=== PATIENT | male | born 1975 | race Caucasian/White ===

== ENCOUNTER 2017-08-15 15:24 | Inpatient (IN) | payer MEDICARE, MEDICAID ==
[2017-08-15] MEDS: NICOTINE 21MG/24HR 1 EA TRANSDERMAL TD (09:00)
[2017-08-15 16:10] LABS: HEMATOCRIT 41.6 % (42.0-52.0); HEMOGLOBIN 14.1 g/dl (13.5-17.5); MEAN CORPUSCULAR HEMOGLOBIN 31.2 pg (27.0-33.0); MEAN CORPUSCULAR HGB CONC 33.9 g/dl (32.0-36.5); PLATELET COUNT, AUTOMATED 221 10^3/uL (150-450); RED BLOOD COUNT 4.52 10^6/uL (4.30-6.10); RED CELL DISTRIBUTION WIDTH 12.3 % (11.5-14.5); WHITE BLOOD COUNT 6.1 10^3/uL (4.0-10.0)
[2017-08-15 16:34] LABS: AMPHETAMINES LEVEL URINE NEGATIVE (NEGATIVE); BARBITURATES URINE NEGATIVE (NEGATIVE); BENZODIAZEPINES URINE NEGATIVE (NEGATIVE); CANNABINOIDS URINE POSITIVE (NEGATIVE); COCAINE METABOLITE URINE POSITIVE (NEGATIVE); METHADONE URINE NEGATIVE (NEGATIVE); OPIATES URINE NEGATIVE (NEGATIVE); PHENCYCLIDINE URINE NEGATIVE (NEGATIVE)
[2017-08-15 16:42] LABS: ACETAMINOPHEN LEVEL < 2.0 UG/ML (10.0-30.0); ALBUMIN 3.8 GM/DL (3.2-5.2); ALBUMIN/GLOBULIN RATIO 1.31 (1.00-1.93); ALKALINE PHOSPHATASE 69 U/L (45-117); ALT/SGPT 60 U/L (12-78); ANION GAP 6 MEQ/L (8-16); AST/SGOT 49 U/L (7-37); BILIRUBIN,DIRECT 0.1 MG/DL (0.0-0.2); BILIRUBIN,TOTAL 0.3 MG/DL (0.2-1.0); BLOOD UREA NITROGEN 18 MG/DL (7-18); CALCIUM LEVEL 8.7 MG/DL (8.5-10.1); CARBON DIOXIDE LEVEL 27 MEQ/L (21-32); CHLORIDE LEVEL 110 MEQ/L (98-107); CPK CREATINE PHOSPHOKINASE 701 U/L (39-308); CREATININE FOR GFR 1.09 MG/DL (0.70-1.30); GLOMERULAR FILTRATION RATE > 60.0 (>60); GLUCOSE, FASTING 115 MG/DL (70-100); POTASSIUM SERUM 3.9 MEQ/L (3.5-5.1); SALICYLATE LEVEL < 1.7 MG/DL (5.0-30.0); SODIUM LEVEL 143 MEQ/L (136-145); THYROID STIMULATING HORMONE 0.764 uIU/ML (0.358-3.740); TOTAL PROTEIN 6.7 GM/DL (6.4-8.2)
[2017-08-15 16:46] LABS: ETHYL ALCOHOL (ETHANOL) < 0.003 % (0.000-0.010)
[2017-08-15] MEDS: NS 1,000 ML IV (17:05)
[2017-08-15] MEDS ORDERED: MOM 30ML SUSPENSION UDC PO (18:45)
[2017-08-15] MEDS ORDERED: MAALOX 30 ML SUSP *UDC PO (18:45)
[2017-08-15] MEDS ORDERED: LORazepam 2 MG TAB PO (18:45)
[2017-08-15] MEDS: THIAMINE 100 MG TAB PO (19:31)
[2017-08-15] MEDS: OLANZapine ORAL DISINTEGRATING TAB 5MG PO (21:01)
[2017-08-16] MEDS: ACETAMINOPHEN TAB 650MG DOSE (2X325MG) PO ×2 (06:14→18:20)
[2017-08-16] MEDS: IBUPROFEN 400 MG TAB PO (08:45)
[2017-08-16] MEDS: FOLIC ACID 1 MG TAB PO (08:46)
[2017-08-16] MEDS: OLANZapine ORAL DISINTEGRATING TAB 5MG PO ×3 (08:46→18:20)
[2017-08-16] MEDS: MULTIVITAMINS/MINERALS THERAP 1 TAB PO (08:46)
[2017-08-16] MEDS: THIAMINE 100 MG TAB PO ×2 (08:46→20:22)
[2017-08-16] MEDS: amLODIPine 5 MG TAB PO (08:46)
[2017-08-16] MEDS: CitaloPRAM (CeleXA) 20 MG TAB PO (08:46)
[2017-08-16] MEDS: NICOTINE 21MG/24HR 1 EA TRANSDERMAL TD (08:47)
[2017-08-16] MEDS: LIDOCAINE 5% (LIDODERM) PATCH TD (14:11)
[2017-08-16] MEDS: QUEtiapine FUMARATE 200 MG TAB PO (20:23)
[2017-08-16] MEDS: **NOTE PATIENT COMMENT** MISC XX (21:00)
[2017-08-16] MEDS: traZODone 50 MG TAB PO (21:09)
[2017-08-17] MEDS: OLANZapine ORAL DISINTEGRATING TAB 5MG PO ×2 (06:14→14:58)
[2017-08-17] MEDS: IBUPROFEN 400 MG TAB PO (06:15)
[2017-08-17 07:54] LABS: CPK CREATINE PHOSPHOKINASE 243 U/L (39-308)
[2017-08-17] MEDS: THIAMINE 100 MG TAB PO ×2 (08:54→20:19)
[2017-08-17] MEDS: MULTIVITAMINS/MINERALS THERAP 1 TAB PO (08:54)
[2017-08-17] MEDS: amLODIPine 5 MG TAB PO (08:55)
[2017-08-17] MEDS: QUEtiapine FUMARATE 200 MG TAB PO ×2 (08:55→20:19)
[2017-08-17] MEDS: ACETAMINOPHEN TAB 650MG DOSE (2X325MG) PO (08:55)
[2017-08-17] MEDS: FOLIC ACID 1 MG TAB PO (08:55)
[2017-08-17] MEDS: LIDOCAINE 5% (LIDODERM) PATCH TD ×2 (08:56→18:14)
[2017-08-17] MEDS: NICOTINE 21MG/24HR 1 EA TRANSDERMAL TD (08:57)
[2017-08-17] MEDS: BACLOFEN 10 MG TAB PO ×2 (12:56→22:07)
[2017-08-17] MEDS: IBUPROFEN 800 MG TAB PO (17:10)
[2017-08-17] MEDS: **NOTE PATIENT COMMENT** MISC XX (20:20)
[2017-08-17] MEDS: traZODone 50 MG TAB PO (22:07)
[2017-08-18] MEDS: OLANZapine ORAL DISINTEGRATING TAB 5MG PO ×2 (06:08→14:53)
[2017-08-18] MEDS: IBUPROFEN 800 MG TAB PO ×2 (06:10→17:56)
[2017-08-18] MEDS: QUEtiapine FUMARATE 200 MG TAB PO (08:06)
[2017-08-18] MEDS: MULTIVITAMINS/MINERALS THERAP 1 TAB PO (08:06)
[2017-08-18] MEDS: LIDOCAINE 5% (LIDODERM) PATCH TD (08:06)
[2017-08-18] MEDS: FOLIC ACID 1 MG TAB PO (08:06)
[2017-08-18] MEDS: BACLOFEN 10 MG TAB PO ×2 (08:06→17:56)
[2017-08-18] MEDS: amLODIPine 5 MG TAB PO (08:06)
[2017-08-18] MEDS: THIAMINE 100 MG TAB PO (08:06)
[2017-08-18] MEDS: NICOTINE 21MG/24HR 1 EA TRANSDERMAL TD (08:08)
[2017-08-18] MEDS: ACETAMINOPHEN TAB 650MG DOSE (2X325MG) PO ×2 (11:30→20:59)
[2017-08-18] MEDS: QUEtiapine FUMARATE 100 MG TAB PO (20:04)
[2017-08-18] MEDS: traZODone 50 MG TAB PO (20:04)
[2017-08-18] MEDS: PILL CRUSHER/CUTTER 1 EACH XX (20:04)
[2017-08-18] MEDS: **NOTE PATIENT COMMENT** MISC XX (20:05)
[2017-08-19] MEDS: OLANZapine ORAL DISINTEGRATING TAB 5MG PO ×3 (04:16→20:31)
[2017-08-19] MEDS: LIDOCAINE 5% (LIDODERM) PATCH TD (08:00)
[2017-08-19] MEDS: IBUPROFEN 800 MG TAB PO (08:03)
[2017-08-19] MEDS: BACLOFEN 10 MG TAB PO ×2 (08:03→17:14)
[2017-08-19] MEDS: FOLIC ACID 1 MG TAB PO (08:03)
[2017-08-19] MEDS: MULTIVITAMINS/MINERALS THERAP 1 TAB PO (08:03)
[2017-08-19] MEDS: QUEtiapine FUMARATE 100 MG TAB PO ×2 (08:03→20:03)
[2017-08-19] MEDS: NICOTINE 21MG/24HR 1 EA TRANSDERMAL TD (08:04)
[2017-08-19] MEDS: amLODIPine 5 MG TAB PO (08:04)
[2017-08-19] MEDS: ACETAMINOPHEN TAB 650MG DOSE (2X325MG) PO (12:26)
[2017-08-19] MEDS: traZODone 50 MG TAB PO (20:03)
[2017-08-19] MEDS: **NOTE PATIENT COMMENT** MISC XX (20:03)
[2017-08-19] MEDS: PILL CRUSHER/CUTTER 1 EACH XX (20:03)
[2017-08-20] MEDS: IBUPROFEN 800 MG TAB PO (05:01)
[2017-08-20] MEDS: MULTIVITAMINS/MINERALS THERAP 1 TAB PO (08:20)
[2017-08-20] MEDS: FOLIC ACID 1 MG TAB PO (08:20)
[2017-08-20] MEDS: QUEtiapine FUMARATE 50 MG TAB PO (08:20)
[2017-08-20] MEDS: OLANZapine ORAL DISINTEGRATING TAB 5MG PO (08:20)
[2017-08-20] MEDS: amLODIPine 5 MG TAB PO (08:20)
[2017-08-20] MEDS: BACLOFEN 10 MG TAB PO (08:21)
[2017-08-20] MEDS: LIDOCAINE 5% (LIDODERM) PATCH TD (08:21)
[2017-08-20] MEDS: NICOTINE 21MG/24HR 1 EA TRANSDERMAL TD (09:00)
== END 2017-08-20 14:40 | disposition home or self-care (01) | DRG 885 ==
LOC: M ED 15:24 → M ED INP 18:41 → M PSY 21:20
DX: F31.60 Bipolar disorder, current episode mixed, unspecified (principal); F41.1 Generalized anxiety disorder; F41.0 Panic disorder [episodic paroxysmal anxiety]; Z91.19 Patient's noncompliance with other medical treatment and regimen; F14.90 Cocaine use, unspecified, uncomplicated; F10.10 Alcohol abuse, uncomplicated; F12.90 Cannabis use, unspecified, uncomplicated; Z79.899 Other long term (current) drug therapy; I10 Essential (primary) hypertension; M54.5 Low back pain; Z87.891 Personal history of nicotine dependence

== ENCOUNTER → 2017-10-20 | Outpatient (REF) | payer MEDICARE, MEDICAID ==
[2017-10-20 11:36] LABS: BASO # 0.1 10^3/uL (0.0-0.2); BASO % 0.8 % (0.0-1.0); EOS # 0.3 10^3/uL (0.0-0.50); EOS % 3.9 % (0.0-3.0); HEMATOCRIT 48.5 % (42.0-52.0); IMMATURE GRANULOCYTE # 0.1 10^3/uL (0-0); IMMATURE GRANULOCYTE % 0.6 % (0-3.0); LYMPH # 1.9 10^3/uL (1.5-4.5); LYMPH % 24.3 % (24.0-44.0); MEAN CORPUSCULAR HEMOGLOBIN 30.9 pg (27.0-33.0); MEAN CORPUSCULAR VOLUME 93.6 fl (80.0-96.0); MONO # 0.5 10^3/uL (0.0-0.8); MONO % 6.3 % (0.0-5.0); NEUTROPHILS # 5.1 10^3/uL (1.8-7.7); NEUTROPHILS % 64.1 % (36.0-66.0); PLATELET COUNT, AUTOMATED 192 10^3/uL (150-450); RED BLOOD COUNT 5.18 10^6/uL (4.30-6.10); RED CELL DISTRIBUTION WIDTH 12.5 % (11.5-14.5); WHITE BLOOD COUNT 7.9 10^3/uL (4.0-10.0)
[2017-10-20 12:15] LABS: ALBUMIN 3.8 GM/DL (3.2-5.2); ALBUMIN/GLOBULIN RATIO 1.23 (1.00-1.93); ALKALINE PHOSPHATASE 69 U/L (45-117); ALT/SGPT 30 U/L (12-78); ANION GAP 7 MEQ/L (8-16); AST/SGOT 19 U/L (7-37); BILIRUBIN,TOTAL 0.4 MG/DL (0.2-1.0); BLOOD UREA NITROGEN 15 MG/DL (7-18); CALCIUM LEVEL 9.4 MG/DL (8.5-10.1); CARBON DIOXIDE LEVEL 30 MEQ/L (21-32); CHLORIDE LEVEL 108 MEQ/L (98-107); CHOLESTEROL LEVEL 162 MG/DL (<200); CHOLESTEROL RISK RATIO 3.115 (<5); CREATININE FOR GFR 1.17 MG/DL (0.70-1.30); GLOMERULAR FILTRATION RATE > 60.0 (>60); GLUCOSE, FASTING 83 MG/DL (70-100); HDL CHOLESTEROL 52 MG/DL (>40); LDL CHOLESTEROL 93.4 MG/DL (<100); NON-HDL-C 110 MG/DL; POTASSIUM SERUM 4.8 MEQ/L (3.5-5.1); SODIUM LEVEL 145 MEQ/L (136-145); TOTAL PROTEIN 6.9 GM/DL (6.4-8.2); TRIGLYCERIDES LEVEL 83 MG/DL (<150)
[2017-10-20 12:27] LABS: ERYTHROCYTE SEDIMENTATION RATE 2 mm/hr (0-15)
== END ==
LOC: M LABDRAW1 11:20
DX: R07.2 Precordial pain (principal); I49.3 Ventricular premature depolarization; R94.31 Abnormal electrocardiogram [ECG] [EKG]; I10 Essential (primary) hypertension
CPT/HCPCS: 83735

== ENCOUNTER → 2017-11-09 | Outpatient (CLI) | payer MEDICARE, MEDICAID | LOC: M RAD 09:18 | DX: J98.4 Other disorders of lung (principal); F17.210 Nicotine dependence, cigarettes, uncomplicated | CPT/HCPCS: 71250 ==

== ENCOUNTER 2018-01-10 07:39 | Emergency (ER) | payer MEDICARE, MEDICAID ==
[2018-01-10] MEDS: PERCOCET 5MG/325MG TAB PO (08:02)
[2018-01-10] MEDS: diazePAM 5 MG TAB PO (08:03)
[2018-01-10] MEDS: KETOROLAC 60 MG/2 ML VIAL (J1885) IM (08:03)
[2018-01-10] MEDS: LIDOCAINE 5% (LIDODERM) PATCH TD (08:08)
[2018-01-10] MEDS ORDERED: **NOTE PATIENT COMMENT** MISC XX (21:00)
== END 2018-01-10 08:51 | disposition home or self-care (01) ==
LOC: M ED 07:39
DX: M54.14 Radiculopathy, thoracic region (principal); I10 Essential (primary) hypertension; G89.29 Other chronic pain; M54.5 Low back pain
CPT/HCPCS: J1885

== ENCOUNTER 2018-03-20 18:33 | Inpatient (IN) | payer MEDICARE, MEDICAID ==
[2018-03-20 19:04] LABS: HEMOGLOBIN 16.7 g/dl (13.5-17.5); MEAN CORPUSCULAR HEMOGLOBIN 30.7 pg (27.0-33.0); MEAN CORPUSCULAR HGB CONC 34.8 g/dl (32.0-36.5); MEAN CORPUSCULAR VOLUME 88.2 fl (80.0-96.0); PLATELET COUNT, AUTOMATED 196 10^3/uL (150-450); RED BLOOD COUNT 5.44 10^6/uL (4.30-6.10); RED CELL DISTRIBUTION WIDTH 11.9 % (11.5-14.5); WHITE BLOOD COUNT 7.1 10^3/uL (4.0-10.0)
[2018-03-20 19:37] LABS: AMPHETAMINES LEVEL URINE NEGATIVE (NEGATIVE); BARBITURATES URINE NEGATIVE (NEGATIVE); BENZODIAZEPINES URINE NEGATIVE (NEGATIVE); CANNABINOIDS URINE NEGATIVE (NEGATIVE); COCAINE METABOLITE URINE NEGATIVE (NEGATIVE); METHADONE URINE NEGATIVE (NEGATIVE); OPIATES URINE NEGATIVE (NEGATIVE); PHENCYCLIDINE URINE NEGATIVE (NEGATIVE)
[2018-03-20 19:47] LABS: ACETAMINOPHEN LEVEL < 2.0 UG/ML (10.0-30.0); ALBUMIN 4.1 GM/DL (3.2-5.2); ALBUMIN/GLOBULIN RATIO 1.28 (1.00-1.93); ALKALINE PHOSPHATASE 77 U/L (45-117); ALT/SGPT 29 U/L (12-78); ANION GAP 7 MEQ/L (8-16); AST/SGOT 21 U/L (7-37); BILIRUBIN,DIRECT 0.1 MG/DL (0.0-0.2); BILIRUBIN,TOTAL 0.4 MG/DL (0.2-1.0); BLOOD UREA NITROGEN 14 MG/DL (7-18); CALCIUM LEVEL 8.6 MG/DL (8.5-10.1); CARBON DIOXIDE LEVEL 28 MEQ/L (21-32); CHLORIDE LEVEL 108 MEQ/L (98-107); CREATININE FOR GFR 1.12 MG/DL (0.70-1.30); ETHYL ALCOHOL (ETHANOL) 0.085 % (0.000-0.010); GLOMERULAR FILTRATION RATE > 60.0 (>60); GLUCOSE, FASTING 89 MG/DL (70-100); POTASSIUM SERUM 3.9 MEQ/L (3.5-5.1); SALICYLATE LEVEL 1.9 MG/DL (5.0-30.0); SODIUM LEVEL 143 MEQ/L (136-145); TOTAL PROTEIN 7.3 GM/DL (6.4-8.2)
[2018-03-20] MEDS: OLANZapine 5 MG TAB PO (20:16)
[2018-03-20] MEDS ORDERED: MAALOX 30 ML SUSP *UDC PO (20:45)
[2018-03-20] MEDS ORDERED: MOM 30ML SUSPENSION UDC PO (20:45)
[2018-03-20] MEDS: traZODone 50 MG TAB PO (23:26)
[2018-03-21] MEDS: THIAMINE 100 MG TAB PO ×2 (03:49→20:10)
[2018-03-21] MEDS ORDERED: LORazepam 2 MG TAB PO (04:00)
[2018-03-21] MEDS: FOLIC ACID 1 MG TAB PO (08:12)
[2018-03-21] MEDS: MULTIVITAMINS/MINERALS THERAP 1 TAB PO (08:12)
[2018-03-21] MEDS: ACETAMINOPHEN TAB 650MG DOSE (2X325MG) PO (09:05)
[2018-03-21] MEDS: PREGABALIN 75 MG CAP(LYRICA) PO ×2 (10:25→20:09)
[2018-03-21] MEDS: OLANZapine 10 MG TAB PO ×2 (10:25→20:09)
[2018-03-21] MEDS: LIDOCAINE 5% (LIDODERM) PATCH TD (10:26)
[2018-03-21] MEDS: VERAPAMIL 120 MG SR TAB PO (11:34)
[2018-03-21] MEDS: NICOTINE POLACRILEX 2 MG GUM PO ×3 (11:35→21:40)
[2018-03-21] MEDS: IBUPROFEN 800 MG TAB PO (14:25)
[2018-03-21] MEDS: traZODone 50 MG TAB PO (20:09)
[2018-03-21] MEDS: **NOTE PATIENT COMMENT** MISC XX (21:00)
[2018-03-22] MEDS: NICOTINE POLACRILEX 2 MG GUM PO ×3 (08:29→21:55)
[2018-03-22] MEDS: FOLIC ACID 1 MG TAB PO (08:29)
[2018-03-22] MEDS: PREGABALIN 75 MG CAP(LYRICA) PO ×2 (08:29→20:27)
[2018-03-22] MEDS: THIAMINE 100 MG TAB PO ×2 (08:29→20:27)
[2018-03-22] MEDS: MULTIVITAMINS/MINERALS THERAP 1 TAB PO (08:30)
[2018-03-22] MEDS: OLANZapine 10 MG TAB PO ×2 (08:30→20:27)
[2018-03-22] MEDS: LIDOCAINE 5% (LIDODERM) PATCH TD (08:30)
[2018-03-22] MEDS: VERAPAMIL 120 MG SR TAB PO (08:30)
[2018-03-22] MEDS: IBUPROFEN 800 MG TAB PO ×2 (12:19→21:57)
[2018-03-22] MEDS: ACETAMINOPHEN TAB 650MG DOSE (2X325MG) PO (18:11)
[2018-03-22] MEDS: traZODone 50 MG TAB PO (20:27)
[2018-03-22] MEDS: **NOTE PATIENT COMMENT** MISC XX (20:28)
[2018-03-23] MEDS: PREGABALIN 75 MG CAP(LYRICA) PO ×2 (08:56→20:25)
[2018-03-23] MEDS: LIDOCAINE 5% (LIDODERM) PATCH TD (08:56)
[2018-03-23] MEDS: OLANZapine 10 MG TAB PO ×2 (08:57→20:25)
[2018-03-23] MEDS: THIAMINE 100 MG TAB PO ×2 (08:57→20:25)
[2018-03-23] MEDS: VERAPAMIL 120 MG SR TAB PO (08:57)
[2018-03-23] MEDS: MULTIVITAMINS/MINERALS THERAP 1 TAB PO (08:57)
[2018-03-23] MEDS: FOLIC ACID 1 MG TAB PO (08:57)
[2018-03-23] MEDS: NICOTINE POLACRILEX 2 MG GUM PO ×3 (08:58→20:26)
[2018-03-23] MEDS: IBUPROFEN 800 MG TAB PO ×2 (12:20→22:27)
[2018-03-23] MEDS: traZODone 50 MG TAB PO (20:25)
[2018-03-23] MEDS: **NOTE PATIENT COMMENT** MISC XX (20:27)
[2018-03-24] MEDS: MULTIVITAMINS/MINERALS THERAP 1 TAB PO (08:55)
[2018-03-24] MEDS: PREGABALIN 75 MG CAP(LYRICA) PO ×2 (08:55→20:31)
[2018-03-24] MEDS: FOLIC ACID 1 MG TAB PO (08:55)
[2018-03-24] MEDS: NICOTINE POLACRILEX 2 MG GUM PO ×3 (08:55→20:31)
[2018-03-24] MEDS: OLANZapine 10 MG TAB PO ×2 (08:55→20:31)
[2018-03-24] MEDS: VERAPAMIL 120 MG SR TAB PO (08:56)
[2018-03-24] MEDS: LIDOCAINE 5% (LIDODERM) PATCH TD (08:57)
[2018-03-24] MEDS: IBUPROFEN 800 MG TAB PO (13:27)
[2018-03-24] MEDS: **NOTE PATIENT COMMENT** MISC XX (20:29)
[2018-03-24] MEDS: traZODone 50 MG TAB PO ×2 (20:31→23:35)
[2018-03-25] MEDS: IBUPROFEN 800 MG TAB PO (08:20)
[2018-03-25] MEDS: MULTIVITAMINS/MINERALS THERAP 1 TAB PO (08:20)
[2018-03-25] MEDS: FOLIC ACID 1 MG TAB PO (08:20)
[2018-03-25] MEDS: VERAPAMIL 120 MG SR TAB PO (08:20)
[2018-03-25] MEDS: LIDOCAINE 5% (LIDODERM) PATCH TD (08:20)
[2018-03-25] MEDS: OLANZapine 10 MG TAB PO (08:20)
[2018-03-25] MEDS: PREGABALIN 75 MG CAP(LYRICA) PO (08:20)
[2018-03-25] MEDS: NICOTINE POLACRILEX 2 MG GUM PO (08:23)
== END 2018-03-25 11:15 | disposition home or self-care (01) | DRG 885 ==
LOC: M ED 18:33 → M ED INP 20:39 → M PSY 21:55
DX: F31.9 Bipolar disorder, unspecified (principal); R45.851 Suicidal ideations; M54.5 Low back pain; F12.90 Cannabis use, unspecified, uncomplicated; F10.10 Alcohol abuse, uncomplicated; F17.210 Nicotine dependence, cigarettes, uncomplicated; F17.220 Nicotine dependence, chewing tobacco, uncomplicated; I10 Essential (primary) hypertension

== ENCOUNTER 2018-08-09 11:02 | Emergency (ER) | payer MEDICARE, MEDICAID ==
[~2018-08-09] VITALS: Ht 195.6 cm; Wt 106.8 kg
[2018-08-09 11:02] VITALS: BP 122/82
[~2018-08-09 11:02] MED LIST: ABIL1TAB12 PO; ACET1TAB55 PO; ANEX7.5T PO; ARIP1TAB6 PO; BACL10TA2 PO; BENA25TA10 PO; CELE20TA; CELE20TA PO; CYCL5TAB PO; FOLI1TAB11 PO; IBUP400T OR; IBUP80TA PO; INDO75CA PO; LAMI1TAB7 OR; LAMI1TAB9 OR; LIDO1DIS2 TD; LIDO5TD TD; LYRI75CA PO; MELO15TA28 PO; NAPR-837 PO; NAPR500T2 PO; NICO21PAT TD; NORV5TAB PO; OLAN10TA2 PO; OLAN5TAB PO; QUET1TAB8 PO; QUET5TAB PO; ROBA500T PO; SERO1TAB PO; SERO200T OR; SERO200T43 OR; SOMA350T PO; TRAZ50TA OR; TRAZ50TA2 PO; TRAZO50TA PO; VERA120C3 PO; ZOVI5OIN TOP
[2018-08-09] MEDS ORDERED: TIZA4TAB4 (11:12)
[2018-08-09] MEDS ORDERED: KETOROLAC 60 MG/2 ML VIAL (J1885) IM ONE (11:30)
[2018-08-09] MEDS ORDERED: LIDOCAINE 5% (LIDODERM) PATCH TD ONE (11:30)
[2018-08-09] MEDS ORDERED: **NOTE PATIENT COMMENT** MISC XX SCH (21:00)
== END 2018-08-09 11:55 | disposition home or self-care (01) ==
LOC: M ED 11:02
DX: M54.5 Low back pain (principal); G89.29 Other chronic pain; I10 Essential (primary) hypertension; F31.9 Bipolar disorder, unspecified; F25.9 Schizoaffective disorder, unspecified; F41.9 Anxiety disorder, unspecified; K42.9 Umbilical hernia without obstruction or gangrene; Z79.899 Other long term (current) drug therapy
CPT/HCPCS: 96372; 99283; J1885

== ENCOUNTER 2018-10-20 17:50 | Emergency (ER) | payer MEDICARE, MEDICAID ==
[~2018-10-20] VITALS: Ht 195.6 cm; Wt 106.8 kg
[2018-10-20 17:50] VITALS: BP 130/86
[~2018-10-20 17:50] MED LIST changes: +TIZA4TAB4; +TRAZ1TAB10 PO; -TRAZO50TA PO
[2018-10-20] MEDS ORDERED: SERT-138 PO (18:00)
--- NOTE | 2018-10-20 20:58 | ECGEPIP ---
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
== END 2018-10-20 18:04 | disposition left against medical advice (07) ==
LOC: M ED 17:50
DX: R07.9 Chest pain, unspecified (principal); I44.0 Atrioventricular block, first degree; I45.19 Other right bundle-branch block; Z53.21 Procedure and treatment not carried out due to patient leaving prior to being seen by health care provider

== ENCOUNTER → 2018-11-16 | Outpatient (CLI) | payer MEDICARE, MEDICAID ==
[~2018-11-16] MED LIST changes: +SERT-138 PO
[2018-11-16 14:04] LABS: HEMATOCRIT 46.6 % (42.0-52.0); MEAN CORPUSCULAR HEMOGLOBIN 30.8 pg (27.0-33.0); MEAN CORPUSCULAR HGB CONC 34.3 g/dl (32.0-36.5); MEAN CORPUSCULAR VOLUME 89.8 fl (80.0-96.0); PLATELET COUNT, AUTOMATED 223 10^3/uL (150-450); RED BLOOD COUNT 5.19 10^6/uL (4.30-6.10); WHITE BLOOD COUNT 8.1 10^3/uL (4.0-10.0)
[2018-11-16 14:28] LABS: ALBUMIN 4.1 GM/DL (3.2-5.2); ALT/SGPT 20 U/L (12-78); BILIRUBIN,TOTAL 0.5 MG/DL (0.2-1.0); BLOOD UREA NITROGEN 10 MG/DL (7-18); CALCIUM LEVEL 9.2 MG/DL (8.5-10.1); CARBON DIOXIDE LEVEL 28 MEQ/L (21-32); CHLORIDE LEVEL 107 MEQ/L (98-107); CREATININE FOR GFR 1.02 MG/DL (0.70-1.30); GLOMERULAR FILTRATION RATE > 60.0 (>60); GLUCOSE, FASTING 96 MG/DL (70-100); SODIUM LEVEL 140 MEQ/L (136-145)
[2018-11-16 16:28] LABS: CHLAMYDIA DNA AMPLIFICATION NEGATIVE (NEGATIVE); GC DNA AMPLIFICATION NEGATIVE (NEGATIVE)
--- NOTE | 2018-11-16 18:00 | ECGEPIP ---
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
[2018-11-17 08:55] LABS: HEPATITIS B SURFACE ANTIGEN NEGATIVE (NEGATIVE)
[2018-11-17 09:23] LABS: HEPATITIS C VIRUS ABY INDEX < 0.0 INDEX (<0.8)
[2018-11-17 09:24] LABS: HIV 1&2 SCREEN CENTAUR NEGATIVE (NEGATIVE)
== END ==
LOC: M LAB 13:20
PROVIDERS: ATTEND Family Medicine
DX: F11.20 Opioid dependence, uncomplicated (principal)

== ENCOUNTER 2018-11-27 11:17 | Emergency (ER) | payer MEDICARE, MEDICAID ==
[~2018-11-27] VITALS: Ht 195.6 cm; Wt 97.7 kg
[2018-11-27] MEDS ORDERED: SUBO8MIS SL (11:23)
[2018-11-27] MEDS ORDERED: TRAZ-252 (11:23)
[2018-11-27] MEDS ORDERED: PRED10TA2 PO (12:43)
[2018-11-27] MEDS ORDERED: KETOROLAC 60 MG/2 ML VIAL (J1885) IM ONE (12:45)
[2018-11-27 13:17] VITALS: BP 139/75
== END 2018-11-27 13:15 | disposition home or self-care (01) ==
LOC: M ED 11:17
DX: M54.5 Low back pain (principal); G89.29 Other chronic pain; I10 Essential (primary) hypertension; K59.00 Constipation, unspecified; F17.210 Nicotine dependence, cigarettes, uncomplicated; Z79.899 Other long term (current) drug therapy
CPT/HCPCS: 96372; 99283; J1885

== ENCOUNTER 2019-07-30 17:08 | Emergency (ER) | payer MEDICARE, MEDICAID ==
[~2019-07-30] VITALS: Ht 195.6 cm; Wt 97.0 kg
[~2019-07-30 17:08] MED LIST changes: +PRED10TA2 PO; +QUET100T2 PO; -QUET1TAB8 PO; +SUBO8MIS SL; +TRAZ-252
[2019-07-30] MEDS ORDERED: ACETAMINOPHEN 500 MG TAB PO ONE (17:45)
[2019-07-30] MEDS ORDERED: BOOSTRIX/ADACEL VACCINE (DIPHTH/PERTUSS/ACELL/TETANUS) 0.5ML SYR IM ONE (17:45)
--- NOTE | 2019-07-30 18:02 | REPVR ---
PROCEDURE INFORMATION: Exam: CT Head Without Contrast Exam date and time: 07/30/2019 5:49 PM Age: 43 years old Clinical indication: Injury or trauma; Fall; Initial encounter; Blunt trauma (contusions or hematomas); Consciousness not specified; Additional info: Trauma to head, hit cement, contusion right TECHNIQUE: Imaging protocol: Computed tomography of the head without contrast. Radiation optimization: All CT scans at this facility use at least one of these dose optimization techniques: automated exposure control; mA and/or kV adjustment per patient size (includes targeted exams where dose is matched to clinical indication); or iterative reconstruction. COMPARISON: No relevant prior studies available. FINDINGS: Brain: Ventricles, basilar cisterns, and sulci are normal in size for age. No intracranial mass, mass effect or midline shift. No acute intracranial hemorrhage. No focal effacement of cortical sulci to indicate acute cortical infarct. Bones/joints: No calvarial fracture or destructive process. Sinuses: Imaged paranasal sinuses are clear. Mastoid air cells: Mastoid air cells are normally aerated. Orbits: Imaged orbits are unremarkable. Soft tissues: Asymmetric right posterior vertex extracranial scalp swelling. IMPRESSION: Right posterior vertex extracranial scalp swelling. No underlying acute intracranial abnormality. Electronically signed by: Don Mcmillan On 07/30/2019 18:01:39 PM
--- NOTE | 2019-07-30 18:05 | REPVR ---
PROCEDURE INFORMATION: Exam: CT Cervical Spine Without Contrast Exam date and time: 07/30/2019 5:41 PM Age: 43 years old Clinical indication: Injury or trauma; Fall; Initial encounter; Blunt trauma; Additional info: Trauma to neck TECHNIQUE: Imaging protocol: Computed tomography images of the cervical spine without contrast. Radiation optimization: All CT scans at this facility use at least one of these dose optimization techniques: automated exposure control; mA and/or kV adjustment per patient size (includes targeted exams where dose is matched to clinical indication); or iterative reconstruction. COMPARISON: No relevant prior studies available. FINDINGS: Vertebrae: No segmental vertebral malalignment. Vertebral body height is maintained at all levels. No acute fracture. No destructive or blastic cervical spine osseous lesion. Mild age-appropriate degenerative disc height loss C3-C4, C5-C6 and C6-C7 without osseous spinal canal or significant neural foraminal compromise. Lungs: Imaged lung apices demonstrate no concerning abnormality. Pleural space: No apical pneumothorax. IMPRESSION: No acute fracture or traumatic segmental cervical malalignment. Electronically signed by: Don Mcmillan On 07/30/2019 18:04:41 PM
[2019-07-30] MEDS ORDERED: KETOROLAC 60 MG/2 ML VIAL IM ONE (19:00)
[2019-07-30 19:13] LABS: BASO # 0.1 10^3/uL (0.0-0.2); BASO % 0.9 % (0.0-1.0); EOS # 0.2 10^3/uL (0.0-0.5); EOS % 2.1 % (0.0-3.0); HEMATOCRIT 47.4 % (42.0-52.0); HEMOGLOBIN 15.9 g/dl (13.5-17.5); LYMPH # 1.6 10^3/uL (1.5-5.0); LYMPH % 15.5 % (24.0-44.0); MEAN CORPUSCULAR HEMOGLOBIN 29.4 pg (27.0-33.0); MEAN CORPUSCULAR HGB CONC 33.5 g/dl (32.0-36.5); MEAN CORPUSCULAR VOLUME 87.8 fl (80.0-96.0); MONO # 0.5 10^3/uL (0.0-0.8); MONO % 4.8 % (0.0-5.0); NEUTROPHILS # 7.9 10^3/uL (1.5-8.5); NEUTROPHILS % 76.3 % (36.0-66.0); PLATELET COUNT, AUTOMATED 201 10^3/uL (150-450); WHITE BLOOD COUNT 10.3 10^3/uL (4.0-10.0)
[2019-07-30 19:59] VITALS: BP 135/87
--- NOTE | 2019-07-30 19:59 | REPVR ---
PROCEDURE INFORMATION: Exam: US Pelvis Limited, Male Exam date and time: 07/30/2019 7:38 PM Age: 43 years old Clinical indication: Injury or trauma; Fall; Initial encounter; Blunt trauma (contusions or hematomas); Left; Abdomen, lower; Additional info: Swelling to left lower back following trauma TECHNIQUE: Imaging protocol: Real-time pelvic ultrasound with image documentation. COMPARISON: No relevant prior studies available. FINDINGS: Subcutaneous tissues of the lateral left back demonstrates an ovoid hypoechoic structure measuring 4.3 x 2.3 x 0.9 cm which may represent a subcutaneous hematoma. No Doppler flow. A 2nd area more posteriorly measures 2 x 2.1 x 1.0, which may also represent a hematoma IMPRESSION: Possible subcutaneous hematomas over the left side of the back with measurements given above. This could be evaluated with cross-sectional imaging if symptoms persist. Electronically signed by: Don Mcmillan On 07/30/2019 19:58:06 PM
== END 2019-07-30 20:35 | disposition home or self-care (01) ==
LOC: M ED 17:08
DX: S00.03XA Contusion of scalp, initial encounter (principal); S30.0XXA Contusion of lower back and pelvis, initial encounter; S40.211A Abrasion of right shoulder, initial encounter; M54.2 Cervicalgia; Y04.8XXA Assault by other bodily force, initial encounter; Y92.481 Parking lot as the place of occurrence of the external cause; I10 Essential (primary) hypertension; F19.11 Other psychoactive substance abuse, in remission; Z87.891 Personal history of nicotine dependence; Z79.899 Other long term (current) drug therapy; Z23 Encounter for immunization
CPT/HCPCS: 70450; 72125; 76857; 85025; 90471; 90715; 96372; 99283; J1885

== ENCOUNTER → 2019-10-31 | Outpatient (REF) | payer MEDICARE, MEDICAID ==
[2019-11-28 00:57] LABS: BASO # 0.1 10^3/uL (0.0-0.2); BASO % 1.1 % (0.0-1.0); EOS # 0.4 10^3/uL (0.0-0.5); HEMATOCRIT 47.5 % (42.0-52.0); HEMOGLOBIN 16.1 g/dl (13.5-17.5); LYMPH # 2.7 10^3/uL (1.5-5.0); LYMPH % 37.3 % (24.0-44.0); MEAN CORPUSCULAR HEMOGLOBIN 29.4 pg (27.0-33.0); MEAN CORPUSCULAR HGB CONC 33.9 g/dl (32.0-36.5); MEAN CORPUSCULAR VOLUME 86.8 fl (80.0-96.0); MONO # 0.5 10^3/uL (0.0-0.8); MONO % 6.5 % (0.0-5.0); NEUTROPHILS # 3.5 10^3/uL (1.5-8.5); NEUTROPHILS % 48.8 % (36.0-66.0); PLATELET COUNT, AUTOMATED 193 10^3/uL (150-450); RED BLOOD COUNT 5.47 10^6/uL (4.30-6.10); WHITE BLOOD COUNT 7.2 10^3/uL (4.0-10.0)
[2019-12-12 10:47] LABS: ALT/SGPT 42 U/L (12-78); BILIRUBIN,TOTAL 0.7 MG/DL (0.2-1.0); BLOOD UREA NITROGEN 9 MG/DL (7-18); CALCIUM LEVEL 9.1 MG/DL (8.5-10.1); CARBON DIOXIDE LEVEL 27 MEQ/L (21-32); CHLORIDE LEVEL 107 MEQ/L (98-107); CREATININE FOR GFR 1.09 MG/DL (0.70-1.30); GLOMERULAR FILTRATION RATE > 60.0 (>60); GLUCOSE, FASTING 94 MG/DL (70-100); POTASSIUM SERUM 3.8 MEQ/L (3.5-5.1); SODIUM LEVEL 141 MEQ/L (136-145); TOTAL PROTEIN 6.9 GM/DL (6.4-8.2)
[2019-12-12 11:04] LABS: MONO SCRN NEGATIVE (NEGATIVE)
== END ==
LOC: M LAB REF 08:01
PROVIDERS: ATTEND Family Medicine Addiction Medicine
DX: J02.9 Acute pharyngitis, unspecified (principal)

== ENCOUNTER → 2020-05-02 | Outpatient (CLI) | payer MEDICARE, MEDICAID ==
[~2020-05-02] MED LIST changes: +QUET50TA3 PO; -QUET5TAB PO
== END ==
LOC: M LABSMTC 12:23
PROVIDERS: ATTEND Family Medicine
DX: Z20.822 Contact with and (suspected) exposure to COVID-19 (principal)
CPT/HCPCS: C9803; U0003

== ENCOUNTER 2020-06-22 16:11 | Emergency (ER) | payer MEDICARE, MEDICAID ==
[~2020-06-22] VITALS: Ht 195.6 cm; Wt 95.5 kg
[2020-06-22 18:17] LABS: BASO # 0.1 10^3/uL (0.0-0.2); BASO % 0.8 % (0.0-1.0); EOS # 0.3 10^3/uL (0.0-0.5); HEMATOCRIT 49.1 % (42.0-52.0); HEMOGLOBIN 16.4 g/dl (13.5-17.5); LYMPH # 1.9 10^3/uL (1.5-5.0); LYMPH % 28.9 % (24.0-44.0); MEAN CORPUSCULAR HEMOGLOBIN 29.8 pg (27.0-33.0); MEAN CORPUSCULAR HGB CONC 33.4 g/dl (32.0-36.5); MEAN CORPUSCULAR VOLUME 89.1 fl (80.0-96.0); MONO # 0.5 10^3/uL (0.0-0.8); MONO % 6.9 % (2.0-8.0); NEUTROPHILS # 3.9 10^3/uL (1.5-8.5); NEUTROPHILS % 58.2 % (36.0-66.0); PLATELET COUNT, AUTOMATED 188 10^3/uL (150-450); RED BLOOD COUNT 5.51 10^6/uL (4.30-6.10); WHITE BLOOD COUNT 6.7 10^3/uL (4.0-10.0)
[2020-06-22 18:47] LABS: ALBUMIN 4.2 GM/DL (3.2-5.2); ALT/SGPT 28 U/L (12-78); BILIRUBIN,DIRECT 0.1 MG/DL (0.0-0.2); BILIRUBIN,TOTAL 0.4 MG/DL (0.2-1.0); BLOOD UREA NITROGEN 10 MG/DL (7-18); CALCIUM LEVEL 9.3 MG/DL (8.5-10.1); CARBON DIOXIDE LEVEL 29 MEQ/L (21-32); CHLORIDE LEVEL 108 MEQ/L (98-107); CREATININE FOR GFR 0.84 MG/DL (0.70-1.30); GLOMERULAR FILTRATION RATE > 60.0 (>60); GLUCOSE, FASTING 97 MG/DL (70-100); LIPASE 135 U/L (73-393); POTASSIUM SERUM 4.7 MEQ/L (3.5-5.1); SODIUM LEVEL 142 MEQ/L (136-145); TOTAL PROTEIN 7.1 GM/DL (6.4-8.2)
[2020-06-22] MEDS ORDERED: DICYCLOMINE 10 MG CAP PO ONE (19:35)
[2020-06-22] MEDS ORDERED: LIDOCAINE 4% CREAM 5GM (LMX4) TOP ONE (19:35)
--- NOTE | 2020-06-22 21:01 | REPVR ---
PROCEDURE INFORMATION: Exam: CT Abdomen And Pelvis Without Contrast Exam date and time: 06/22/2020 8:05 PM Age: 44 years old Clinical indication: Abdominal pain; Flank; Left; Additional info: L flank pain TECHNIQUE: Imaging protocol: Computed tomography of the abdomen and pelvis without contrast. Radiation optimization: All CT scans at this facility use at least one of these dose optimization techniques: automated exposure control; mA and/or kV adjustment per patient size (includes targeted exams where dose is matched to clinical indication); or iterative reconstruction. COMPARISON: Pelvis, limited US 07/30/2019 7:23 PM FINDINGS: Liver: Normal. No mass. Gallbladder and bile ducts: Normal. No calcified stones. No ductal dilation. Pancreas: Normal. No ductal dilation. Spleen: Normal. No splenomegaly. Adrenal glands: Normal. No mass. Kidneys and ureters: Kidneys are unremarkable. No calculi or masses.. No hydronephrosis. Stomach and bowel: Unremarkable. No obstruction. No mucosal thickening. Appendix: No evidence of appendicitis. Intraperitoneal space: Unremarkable. No free air. No significant fluid collection. Vasculature: Unremarkable. No abdominal aortic aneurysm. Lymph nodes: Unremarkable. No enlarged lymph nodes. Urinary bladder: Unremarkable as visualized. Reproductive: Unremarkable as visualized. Bones/joints: Bilateral pars defects at L5-S1. Grade 1 anterolisthesis at L5-S1 and grade 1 retrolisthesis at L4-L5. Multilevel degenerative spondylosis. Soft tissues: Unremarkable. IMPRESSION: 1. Bilateral L5-S1 pars defects with multilevel degenerative spondylosis as above. 2. No acute findings. Electronically signed by: Roderick Mcmanus On 06/22/2020 21:00:43 PM
[2020-06-22 21:49] VITALS: BP 141/90
== END 2020-06-22 21:51 | disposition home or self-care (01) ==
LOC: M ED 16:11
DX: R10.12 Left upper quadrant pain (principal); R10.32 Left lower quadrant pain; I10 Essential (primary) hypertension; M54.9 Dorsalgia, unspecified; G89.29 Other chronic pain; F99 Mental disorder, not otherwise specified; F17.200 Nicotine dependence, unspecified, uncomplicated; Z79.899 Other long term (current) drug therapy

== ENCOUNTER → 2020-10-30 | Outpatient (REF) | payer MEDICARE, MEDICAID ==
[~2020-10-30] MED LIST changes: -OLAN10TA2 PO; +OLAN1TAB16 PO; +OLAN1TAB20 PO; -OLAN5TAB PO
[2020-10-30 11:26] LABS: BASO # 0.1 10^3/uL (0.0-0.2); BASO % 0.8 % (0.0-1.0); EOS # 0.4 10^3/uL (0.0-0.5); EOS % 4.9 % (0.0-3.0); HEMATOCRIT 47.5 % (42.0-52.0); HEMOGLOBIN 15.9 g/dl (13.5-17.5); LYMPH # 2.3 10^3/uL (1.5-5.0); LYMPH % 29.1 % (24.0-44.0); MEAN CORPUSCULAR HEMOGLOBIN 30.2 pg (27.0-33.0); MEAN CORPUSCULAR HGB CONC 33.5 g/dl (32.0-36.5); MEAN CORPUSCULAR VOLUME 90.3 fl (80.0-96.0); MONO # 0.6 10^3/uL (0.0-0.8); MONO % 7.2 % (2.0-8.0); NEUTROPHILS # 4.5 10^3/uL (1.5-8.5); NEUTROPHILS % 57.6 % (36.0-66.0); PLATELET COUNT, AUTOMATED 195 10^3/uL (150-450); RED BLOOD COUNT 5.26 10^6/uL (4.30-6.10); WHITE BLOOD COUNT 7.8 10^3/uL (4.0-10.0)
[2020-10-30 11:33] LABS: APPEARANCE, URINE CLEAR (CLEAR); BACTERIA, URINE AUTO NEGATIVE (NEGATIVE); BILIRUBIN, URINE AUTO NEGATIVE (NEGATIVE); BLOOD, URINE BLOOD NEGATIVE (NEGATIVE); COLOR, URINE YELLOW (YELLOW); GLUCOSE, URINE (UA) AUTO NEGATIVE (NEGATIVE); KETONE, URINE AUTO NEGATIVE (NEGATIVE); LEUKOCYTE ESTERASE, URINE AUTO NEGATIVE (NEGATIVE); NITRITE, URINE AUTO NEGATIVE (NEGATIVE); PROTEIN, URINE AUTO NEGATIVE (NEGATIVE); RBC, URINE AUTO 1 /HPF (0-3); SPECIFIC GRAVITY URINE AUTO 1.006 (1.002-1.035); SQUAMOUS EPITHELIAL CELL UR AU 0 /HPF (0-6); UROBILINOGEN, URINE AUTO 0.2 mg/dL (0.0-2.0); WBC, URINE AUTO 0 /HPF (0-3)
[2020-10-30 11:50] LABS: ALBUMIN 4.3 GM/DL (3.2-5.2); ALT/SGPT 26 U/L (12-78); BILIRUBIN,TOTAL 0.6 MG/DL (0.2-1.0); BLOOD UREA NITROGEN 10 MG/DL (7-18); CALCIUM LEVEL 9.5 MG/DL (8.5-10.1); CARBON DIOXIDE LEVEL 30 MEQ/L (21-32); CHLORIDE LEVEL 107 MEQ/L (98-107); CREATININE FOR GFR 0.91 MG/DL (0.70-1.30); GLOMERULAR FILTRATION RATE > 60.0 (>60); GLUCOSE, FASTING 98 MG/DL (70-100); POTASSIUM SERUM 4.4 MEQ/L (3.5-5.1); SODIUM LEVEL 141 MEQ/L (136-145); TOTAL PROTEIN 7.4 GM/DL (6.4-8.2)
[2020-10-30 13:13] LABS: GC DNA AMPLIFICATION NEGATIVE (NEGATIVE)
== END ==
LOC: M LAB REF 10:28
PROVIDERS: ATTEND Physician Assistant
DX: M54.5 Low back pain (principal); N39.0 Urinary tract infection, site not specified; Z11.3 Encounter for screening for infections with a predominantly sexual mode of transmission

== ENCOUNTER → 2021-02-15 | Outpatient (CLI) | payer MEDICARE, MEDICAID ==
[~2021-02-15] MED LIST changes: -QUET50TA3 PO; +QUET50TA4 PO
[2021-02-15 16:52] LABS: FREE T4 1.11 NG/DL (0.76-1.46); THYROID STIMULATING HORMONE 1.18 uIU/ML (0.358-3.740)
[2021-02-15 16:58] LABS: FOLATE 8.2 NG/ML
== END ==
LOC: M LAB 15:27
PROVIDERS: ATTEND Otolaryngology
DX: K14.6 Glossodynia (principal); Z79.899 Other long term (current) drug therapy

== ENCOUNTER → 2021-05-17 | Outpatient (CLI) | payer MEDICARE, MEDICAID ==
[~2021-05-17] MED LIST changes: +LAMO25TA4 PO; +TIZA10TA PO; -TIZA4TAB4
== END ==
LOC: M LABSMTC 09:00
PROVIDERS: ATTEND Anesthesiology
DX: Z01.818 Encounter for other preprocedural examination (principal); Z11.52 Encounter for screening for COVID-19

== ENCOUNTER 2021-11-11 07:48 | Emergency (ER) | payer MEDICARE, MEDICAID ==
[~2021-11-11] VITALS: Ht 195.6 cm; Wt 94.1 kg
[2021-11-11 07:49] VITALS: BP 125/87
[2021-11-11] MEDS ORDERED: LAMO25TA4 PO (09:52)
== END 2021-11-11 10:05 | disposition home or self-care (01) ==
LOC: M ED 07:48
DX: Z76.0 Encounter for issue of repeat prescription (principal); I10 Essential (primary) hypertension; F41.9 Anxiety disorder, unspecified; F31.9 Bipolar disorder, unspecified; F25.9 Schizoaffective disorder, unspecified; F17.210 Nicotine dependence, cigarettes, uncomplicated; Z79.899 Other long term (current) drug therapy

== ENCOUNTER 2022-04-07 11:16 | Emergency (ER) | payer MEDICARE, MEDICAID ==
[~2022-04-07] VITALS: Ht 195.6 cm; Wt 89.4 kg
[2022-04-07 11:17] VITALS: BP 136/101
[2022-04-07] MEDS ORDERED: buPROPion **XL** TABLET 150MG (WELLBUTRIN XL) PO ONE (13:35)
[2022-04-07] MEDS ORDERED: WELLTAB38 PO (13:36)
== END 2022-04-07 14:01 | disposition home or self-care (01) ==
LOC: M ED 11:16
DX: Z76.0 Encounter for issue of repeat prescription (principal); F17.200 Nicotine dependence, unspecified, uncomplicated; Z79.899 Other long term (current) drug therapy

== ENCOUNTER 2022-07-04 08:42 | Inpatient (IN) | payer MEDICARE, MEDICAID ==
[~2022-07-04] VITALS: Ht 195.6 cm; Wt 79.5 kg
[~2022-07-04 08:42] MED LIST changes: +WELLTAB38 PO
[2022-07-04 09:47] LABS: HEMATOCRIT 43.8 % (42.0-52.0); HEMOGLOBIN 14.9 g/dl (13.5-17.5); PLATELET COUNT, AUTOMATED 212 10^3/uL (150-450); RED BLOOD COUNT 4.66 10^6/uL (4.30-6.10); WHITE BLOOD COUNT 8.7 10^3/uL (4.0-10.0)
[2022-07-04 10:09] LABS: ETHYL ALCOHOL (ETHANOL) < 0.003 % (0.000-0.010)
[2022-07-04 10:11] LABS: ACETAMINOPHEN LEVEL < 2.0 UG/ML (10.0-20.0); ALBUMIN 3.6 G/DL (3.2-5.2); ALKALINE PHOSPHATASE 79 U/L (46-116); ALT/SGPT 33 U/L (7.0-40); AST/SGOT 27 U/L (<34); BILIRUBIN,DIRECT 0.2 MG/DL (<0.4); BILIRUBIN,TOTAL 0.7 MG/DL (0.3-1.2); BLOOD UREA NITROGEN 14 MG/DL (9-23); CALCIUM LEVEL 8.7 MG/DL (8.5-10.1); CARBON DIOXIDE LEVEL 27 MMOL/L (20-31); CHLORIDE LEVEL 109 MMOL/L (98-107); CREATININE FOR GFR 1.01 MG/DL (0.70-1.30); GLOMERULAR FILTRATION RATE > 60.0 (>60); GLUCOSE, FASTING 92 MG/DL (60-100); POTASSIUM SERUM 3.7 MMOL/L (3.5-5.1); SALICYLATE LEVEL < 3.0 MG/DL (<30); SODIUM LEVEL 142 MMOL/L (136-145); TOTAL PROTEIN 6.1 G/DL (5.7-8.2)
[2022-07-04 10:14] LABS: THYROID STIMULATING HORMONE 2.202 uIU/ML (0.55-4.78)
[2022-07-04] MEDS ORDERED: diphenhydrAMINE 50MG/ML VIAL IM ONE (10:50)
[2022-07-04] MEDS ORDERED: HALOPERIDOL 5MG/ML 1ML VIAL IM ONE (10:50)
[2022-07-04] MEDS ORDERED: MIDAZOLAM INJ 2MG/2ML VIAL IM ONE (10:50)
[2022-07-04 11:54] LABS: BARBITURATES URINE NEGATIVE (NEGATIVE); BENZODIAZEPINES URINE NEGATIVE (NEGATIVE); METHADONE URINE NEGATIVE (NEGATIVE); OPIATES URINE NEGATIVE (NEGATIVE); PHENCYCLIDINE URINE NEGATIVE (NEGATIVE)
[2022-07-04 11:57] LABS: AMPHETAMINES LEVEL URINE POSITIVE (NEGATIVE); CANNABINOIDS URINE POSITIVE (NEGATIVE); COCAINE METABOLITE URINE POSITIVE (NEGATIVE)
[2022-07-04] MEDS ORDERED: LORazepam 1 MG TAB PO ONE (14:30)
[2022-07-04] MEDS ORDERED: BUPR150T12 PO (16:52)
[2022-07-04] MEDS ORDERED: HOME MED LIST COMPLETE! XX SCH (16:55)
[2022-07-04] MEDS ORDERED: MELOXICAM (MOBIC) 7.5 MG TAB PO ONE (22:00)
[2022-07-04] MEDS ORDERED: MOM 30ML SUSPENSION UDC PO PRN (22:20)
[2022-07-04] MEDS ORDERED: OLANZapine ORAL DISINTEGRATING TAB 5MG PO PRN (22:20)
[2022-07-04] MEDS ORDERED: ACETAMINOPHEN TAB 650MG DOSE (2X325MG) PO PRN (22:20)
[2022-07-05 04:04] VITALS: BP 130/88
[2022-07-05] MEDS ORDERED: MELOXICAM (MOBIC) 7.5 MG TAB PO SCH (09:00)
[2022-07-05] MEDS: tiZANidine 4 MG TAB PO PRN ×2 (10:39→21:11)
[2022-07-05] MEDS: LIDOCAINE 5% (LIDODERM) PATCH TD SCH (10:40)
[2022-07-05] MEDS: DICLOFENAC EPOLAMINE 1.3% PATCH TOP SCH ×2 (10:40→21:11)
[2022-07-05] MEDS: NICOTINE POLACRILEX 2 MG GUM PO PRN ×2 (13:04→19:13)
[2022-07-05 18:00] VITALS: BP 143/87
[2022-07-05] MEDS: MELOXICAM (MOBIC) 7.5 MG TAB PO PRN (19:14)
[2022-07-06 06:08] VITALS: BP 138/90
[2022-07-06] MEDS: DICLOFENAC EPOLAMINE 1.3% PATCH TOP SCH ×2 (08:45→20:42)
[2022-07-06] MEDS: LIDOCAINE 5% (LIDODERM) PATCH TD SCH (08:45)
[2022-07-06] MEDS: NICOTINE POLACRILEX 2 MG GUM PO PRN ×2 (08:45→20:41)
[2022-07-06] MEDS: tiZANidine 4 MG TAB PO PRN (08:45)
[2022-07-06] MEDS: lamoTRIgine 25MG TAB PO SCH (09:00)
[2022-07-06 11:59] VITALS: BP 130/84
[2022-07-06] MEDS: buPROPion 75 MG TAB PO SCH (15:23)
[2022-07-07 06:14] VITALS: BP 142/90
[2022-07-07] MEDS: buPROPion 75 MG TAB PO SCH (08:28)
[2022-07-07] MEDS: NICOTINE POLACRILEX 2 MG GUM PO PRN ×4 (08:28→20:33)
[2022-07-07] MEDS: lamoTRIgine 25MG TAB PO SCH (08:28)
[2022-07-07] MEDS: DICLOFENAC EPOLAMINE 1.3% PATCH TOP SCH ×2 (08:29→20:34)
[2022-07-07] MEDS: LIDOCAINE 5% (LIDODERM) PATCH TD SCH (08:29)
[2022-07-07 15:32] LABS: HIV 1&2 SCREEN ATELLICA NEGATIVE (NEGATIVE)
[2022-07-07 17:47] VITALS: BP 152/90
[2022-07-07] MEDS: tiZANidine 4 MG TAB PO PRN (20:33)
[2022-07-07 21:08] LABS: GC DNA AMPLIFICATION NEGATIVE (NEGATIVE)
[2022-07-08] MEDS: traZODone 50 MG TAB PO PRN ×2 (03:31→22:57)
[2022-07-08] MEDS: LIDOCAINE 5% (LIDODERM) PATCH TD SCH (08:32)
[2022-07-08] MEDS: buPROPion 75 MG TAB PO SCH (08:32)
[2022-07-08] MEDS: DICLOFENAC EPOLAMINE 1.3% PATCH TOP SCH ×2 (08:32→20:27)
[2022-07-08] MEDS: NICOTINE POLACRILEX 2 MG GUM PO PRN ×3 (10:28→20:26)
[2022-07-08] MEDS: DIVALPROEX 500MG *ER* TAB PO SCH (12:53)
[2022-07-08 16:21] VITALS: BP 140/98
[2022-07-08] MEDS: hydrOXYzine 50 MG TAB PO PRN (20:47)
[2022-07-09 06:35] VITALS: BP 137/65
[2022-07-09] MEDS: buPROPion 75 MG TAB PO SCH (08:48)
[2022-07-09] MEDS: NICOTINE POLACRILEX 2 MG GUM PO PRN ×3 (08:48→19:29)
[2022-07-09] MEDS: DICLOFENAC EPOLAMINE 1.3% PATCH TOP SCH ×2 (08:48→20:20)
[2022-07-09] MEDS: DIVALPROEX 500MG *ER* TAB PO SCH (08:48)
[2022-07-09] MEDS: LIDOCAINE 5% (LIDODERM) PATCH TD SCH (08:48)
[2022-07-09 17:57] VITALS: BP 136/79
[2022-07-09] MEDS: hydrOXYzine 50 MG TAB PO PRN (21:06)
[2022-07-09] MEDS: traZODone 50 MG TAB PO PRN (21:06)
[2022-07-10 06:31] VITALS: BP 141/82
[2022-07-10] MEDS: DIVALPROEX 500MG *ER* TAB PO SCH (08:34)
[2022-07-10] MEDS: buPROPion 75 MG TAB PO SCH (08:34)
[2022-07-10] MEDS: DICLOFENAC EPOLAMINE 1.3% PATCH TOP SCH ×3 (09:00→20:08)
[2022-07-10] MEDS: LIDOCAINE 5% (LIDODERM) PATCH TD SCH ×2 (09:00→09:37)
[2022-07-10] MEDS: MELOXICAM (MOBIC) 7.5 MG TAB PO PRN (09:36)
[2022-07-10] MEDS: hydrOXYzine 50 MG TAB PO PRN ×2 (09:37→20:07)
[2022-07-10] MEDS ORDERED: DIVALPROEX 250MG *ER* TAB PO ONE (11:10)
[2022-07-10] MEDS: NICOTINE POLACRILEX 2 MG GUM PO PRN ×3 (11:15→20:08)
[2022-07-10 18:41] VITALS: BP 140/82
[2022-07-10] MEDS: traZODone 50 MG TAB PO PRN (20:07)
[2022-07-11 05:55] VITALS: BP 147/74
[2022-07-11] MEDS: DICLOFENAC EPOLAMINE 1.3% PATCH TOP SCH (07:58)
[2022-07-11] MEDS: LIDOCAINE 5% (LIDODERM) PATCH TD SCH (07:59)
[2022-07-11] MEDS: buPROPion 75 MG TAB PO SCH (08:00)
[2022-07-11] MEDS: NICOTINE POLACRILEX 2 MG GUM PO PRN ×2 (08:00→10:49)
[2022-07-11] MEDS ORDERED: DIVALPROEX 250MG *ER* TAB PO SCH (09:00)
[2022-07-11] MEDS ORDERED: BUPR75TA5 PO (09:22)
[2022-07-11] MEDS ORDERED: HALO5TAB33 PO (09:22)
[2022-07-11] MEDS ORDERED: TRAZ-252 PO (09:22)
[2022-07-11] MEDS ORDERED: LIDO5TD TD (09:22)
[2022-07-11] MEDS ORDERED: HYDR50TA70 PO (09:22)
[2022-07-11] MEDS ORDERED: DICL1PAT6 TOP (09:22)
[2022-07-11] MEDS ORDERED: DEPA250T2 PO (09:22)
[2022-07-11] MEDS ORDERED: MELO7.5T35 PO (09:22)
[2022-07-11] MEDS ORDERED: TIZA10TA PO (09:22)
[2022-07-11] MEDS: hydrOXYzine 50 MG TAB PO PRN (10:49)
== END 2022-07-11 11:58 | disposition home or self-care (01) | DRG 885 ==
LOC: M ED 08:42 → M ED INP 22:17 → M PSY 07-05 03:22
PROVIDERS: ADMIT Psychiatry & Neurology Psychiatry; ATTEND Psychiatry & Neurology Psychiatry
DX: F29 Unspecified psychosis not due to a substance or known physiological condition (principal); R45.851 Suicidal ideations; F15.159 Other stimulant abuse with stimulant-induced psychotic disorder, unspecified; F25.9 Schizoaffective disorder, unspecified; F12.10 Cannabis abuse, uncomplicated; F14.10 Cocaine abuse, uncomplicated; Z59.01 Sheltered homelessness; I10 Essential (primary) hypertension; M54.50 Low back pain, unspecified; F17.200 Nicotine dependence, unspecified, uncomplicated; Z79.899 Other long term (current) drug therapy

== ENCOUNTER 2022-11-15 13:08 | Emergency (ER) | payer MEDICARE, MEDICAID ==
[~2022-11-15] VITALS: Ht 195.6 cm; Wt 85.5 kg
[~2022-11-15 13:08] MED LIST changes: +BUPR150T12 PO; +BUPR75TA5 PO; +DEPA250T2 PO; +DICL1PAT6 TOP; +HALO5TAB33 PO; +HYDR50TA70 PO; +MELO7.5T35 PO; +TRAZ-252 PO
[2022-11-15] MEDS ORDERED: WELLTAB38 PO (13:20)
[2022-11-15] MEDS ORDERED: DEPA500T2 PO (13:20)
[2022-11-15] MEDS ORDERED: PERCOCET 5MG/325MG TAB PO ONE (13:45)
[2022-11-15] MEDS ORDERED: PERC5TAB12 PO (13:49)
[2022-11-15 14:23] VITALS: BP 127/89; TEMP 97.1; O2SAT 97
== END 2022-11-15 14:24 | disposition home or self-care (01) ==
LOC: M ED 13:08
DX: S42.031A Displaced fracture of lateral end of right clavicle, initial encounter for closed fracture (principal); X58.XXXA Exposure to other specified factors, initial encounter; Y92.009 Unspecified place in unspecified non-institutional (private) residence as the place of occurrence of the external cause; Y93.72 Activity, wrestling; Y99.8 Other external cause status; I10 Essential (primary) hypertension; M54.9 Dorsalgia, unspecified; F32.A Depression, unspecified; F41.9 Anxiety disorder, unspecified; F31.9 Bipolar disorder, unspecified; F25.9 Schizoaffective disorder, unspecified; Z79.899 Other long term (current) drug therapy

== ENCOUNTER → 2022-11-21 | Outpatient (CLI) | payer MEDICARE, MEDICAID ==
[~2022-11-21] MED LIST changes: +DEPA500T2 PO; +PERC5TAB12 PO
[2022-11-21 15:23] LABS: HEMOGLOBIN 14.3 g/dl (13.5-17.5); MEAN CORPUSCULAR HEMOGLOBIN 31.4 pg (27.0-33.0); MEAN CORPUSCULAR VOLUME 92.3 fl (80.0-96.0); PLATELET COUNT, AUTOMATED 251 10^3/uL (150-450); RED BLOOD COUNT 4.55 10^6/uL (4.30-6.10); WHITE BLOOD COUNT 7.4 10^3/uL (4.0-10.0)
[2022-11-21 15:54] LABS: ALBUMIN 3.7 G/DL (3.2-5.2); ALKALINE PHOSPHATASE 71 U/L (46-116); ALT/SGPT 15 U/L (7.0-40); AST/SGOT 14 U/L (<34); BILIRUBIN,TOTAL 0.8 MG/DL (0.3-1.2); BLOOD UREA NITROGEN 15 MG/DL (9-23); CALCIUM LEVEL 9.4 MG/DL (8.5-10.1); CARBON DIOXIDE LEVEL 29 MMOL/L (20-31); CHLORIDE LEVEL 106 MMOL/L (98-107); CREATININE FOR GFR 0.91 MG/DL (0.70-1.30); GLOMERULAR FILTRATION RATE > 60.0 (>60); GLUCOSE, FASTING 78 MG/DL (60-100); POTASSIUM SERUM 4.5 MMOL/L (3.5-5.1); SODIUM LEVEL 142 MMOL/L (136-145); TOTAL PROTEIN 6.8 G/DL (5.7-8.2)
[2022-11-21 16:21] LABS: HIV 1&2 SCREEN NEGATIVE (NEGATIVE)
[2022-11-21 16:30] LABS: HEPATITIS C VIRUS ABY INDEX 0.17 INDEX (<0.8)
[2022-11-21 16:52] LABS: GC DNA AMPLIFICATION NEGATIVE (NEGATIVE)
== END ==
LOC: M LAB 14:51
PROVIDERS: ATTEND Family Medicine
DX: F11.20 Opioid dependence, uncomplicated (principal); Z79.899 Other long term (current) drug therapy

== ENCOUNTER → 2022-12-05 | Outpatient (CLI) | payer MEDICARE, MEDICAID | LOC: M SOG 08:05 | PROVIDERS: ATTEND Orthopaedic Surgery | DX: S42.031A Displaced fracture of lateral end of right clavicle, initial encounter for closed fracture (principal); W18.30XA Fall on same level, unspecified, initial encounter; Y92.009 Unspecified place in unspecified non-institutional (private) residence as the place of occurrence of the external cause ==

== ENCOUNTER → 2022-12-11 | Outpatient (CLI) | payer MEDICARE, MEDICAID | LOC: M LAB 09:18 | DX: Z79.899 Other long term (current) drug therapy (principal) ==

== ENCOUNTER → 2023-02-25 | Outpatient (REF) | payer MEDICARE, MEDICAID ==
[2023-02-25 18:48] LABS: APPEARANCE, URINE CLEAR (CLEAR); BACTERIA, URINE AUTO NEGATIVE (NEGATIVE); BILIRUBIN, URINE AUTO NEGATIVE (NEGATIVE); BLOOD, URINE BLOOD NEGATIVE (NEGATIVE); COLOR, URINE YELLOW (YELLOW); GLUCOSE, URINE (UA) AUTO NEGATIVE (NEGATIVE); KETONE, URINE AUTO NEGATIVE (NEGATIVE); LEUKOCYTE ESTERASE, URINE AUTO NEGATIVE (NEGATIVE); MUCUS, URINE SMALL (NEGATIVE); NITRITE, URINE AUTO NEGATIVE (NEGATIVE); PROTEIN, URINE AUTO NEGATIVE (NEGATIVE); RBC, URINE AUTO 1 /HPF (0-3); SPECIFIC GRAVITY URINE AUTO 1.017 (1.002-1.035); SQUAMOUS EPITHELIAL CELL UR AU 0 /HPF (0-6); UROBILINOGEN, URINE AUTO 0.2 mg/dL (0.0-2.0); WBC, URINE AUTO 0 /HPF (0-3)
[2023-02-25 20:02] LABS: CHLAMYDIA DNA AMPLIFICATION NEGATIVE (NEGATIVE); GC DNA AMPLIFICATION NEGATIVE (NEGATIVE)
== END ==
LOC: M LAB REF 17:02
PROVIDERS: ATTEND Physician Assistant
DX: Z11.3 Encounter for screening for infections with a predominantly sexual mode of transmission (principal); N39.0 Urinary tract infection, site not specified

== ENCOUNTER → 2023-05-22 | Outpatient (CLI) | payer MEDICARE, MEDICAID ==
[2023-05-22 12:50] LABS: HEMATOCRIT 44.1 % (42.0-52.0); HEMOGLOBIN 14.4 g/dl (13.5-17.5); MEAN CORPUSCULAR HEMOGLOBIN 31.4 pg (27.0-33.0); MEAN CORPUSCULAR HGB CONC 32.7 g/dl (32.0-36.5); MEAN CORPUSCULAR VOLUME 96.1 fl (80.0-96.0); PLATELET COUNT, AUTOMATED 195 10^3/uL (150-450); RED BLOOD COUNT 4.59 10^6/uL (4.30-6.10); WHITE BLOOD COUNT 6.2 10^3/uL (4.0-10.0)
[2023-05-22 13:12] LABS: ALBUMIN 3.8 G/DL (3.2-5.2); ALKALINE PHOSPHATASE 76 U/L (46-116); ALT/SGPT 17 U/L (7.0-40); AST/SGOT 15 U/L (<34); BILIRUBIN,TOTAL 0.5 MG/DL (0.3-1.2); BLOOD UREA NITROGEN 15 MG/DL (9-23); CALCIUM LEVEL 8.8 MG/DL (8.5-10.1); CARBON DIOXIDE LEVEL 31 MMOL/L (20-31); CHLORIDE LEVEL 108 MMOL/L (98-107); CREATININE FOR GFR 0.93 MG/DL (0.70-1.30); GLOMERULAR FILTRATION RATE > 60.0 (>60); GLUCOSE, FASTING 82 MG/DL (60-100); SODIUM LEVEL 140 MMOL/L (136-145); TOTAL PROTEIN 6.6 G/DL (5.7-8.2)
[2023-05-22 13:47] LABS: HEPATITIS C VIRUS ABY INDEX 0.05 INDEX (<0.8)
[2023-05-22 14:26] LABS: GC DNA AMPLIFICATION NEGATIVE (NEGATIVE)
== END ==
LOC: M LAB 11:23
PROVIDERS: ATTEND Family Medicine
DX: Z11.59 Encounter for screening for other viral diseases (principal); F11.20 Opioid dependence, uncomplicated; Z72.89 Other problems related to lifestyle; Z11.3 Encounter for screening for infections with a predominantly sexual mode of transmission

== ENCOUNTER 2023-08-08 18:00 | Emergency (ER) | payer MEDICARE, MEDICAID ==
[~2023-08-08] VITALS: Ht 195.6 cm; Wt 90.0 kg
[2023-08-08] MEDS ORDERED: HYDR50TA70 (18:15)
[2023-08-08] MEDS ORDERED: QUET200T2 (18:15)
[2023-08-08] MEDS ORDERED: DIVA500T94 (18:15)
[2023-08-08] MEDS ORDERED: VENL75CA47 (18:15)
[2023-08-08] MEDS ORDERED: TIZA10TA (18:15)
[2023-08-08] MEDS ORDERED: CLON-412 (18:15)
[2023-08-08 19:20] VITALS: BP 129/74; TEMP 98.1; O2SAT 99
== END 2023-08-08 20:20 | disposition home or self-care (01) ==
LOC: M ED 18:00
DX: Z20.7 Contact with and (suspected) exposure to pediculosis, acariasis and other infestations (principal); I10 Essential (primary) hypertension; F31.9 Bipolar disorder, unspecified; F20.9 Schizophrenia, unspecified; F17.290 Nicotine dependence, other tobacco product, uncomplicated; F12.10 Cannabis abuse, uncomplicated; Z79.899 Other long term (current) drug therapy

== ENCOUNTER 2023-08-12 02:16 | Inpatient (IN) | payer MEDICARE, MEDICAID ==
[~2023-08-12] VITALS: Ht 195.6 cm; Wt 87.7 kg
[~2023-08-12 02:16] MED LIST changes: +CLON-412 PO; +DIVA500T94 PO; +QUET200T2 PO; +VENL75CA47 PO
[2023-08-12 03:26] LABS: HEMATOCRIT 37.1 % (42.0-52.0); HEMOGLOBIN 12.7 g/dl (13.5-17.5); MEAN CORPUSCULAR HGB CONC 34.2 g/dl (32.0-36.5); MEAN CORPUSCULAR VOLUME 90.5 fl (80.0-96.0); PLATELET COUNT, AUTOMATED 180 10^3/uL (150-450); WHITE BLOOD COUNT 6.7 10^3/uL (4.0-10.0)
[2023-08-12] MEDS ORDERED: CLAR10CA3 PO (03:26)
[2023-08-12 03:53] LABS: ETHYL ALCOHOL (ETHANOL) < 0.003 % (0.000-0.010)
[2023-08-12 03:55] LABS: SALICYLATE LEVEL < 3.0 MG/DL (<30)
[2023-08-12 03:56] LABS: ALBUMIN 3.2 G/DL (3.2-5.2); ALKALINE PHOSPHATASE 68 U/L (46-116); ALT/SGPT 88 U/L (7.0-40); AST/SGOT 187 U/L (<34); BILIRUBIN,DIRECT 0.2 MG/DL (<0.4); BILIRUBIN,TOTAL 0.6 MG/DL (0.3-1.2); BLOOD UREA NITROGEN 18 MG/DL (9-23); CALCIUM LEVEL 8.8 MG/DL (8.5-10.1); CARBON DIOXIDE LEVEL 31 MMOL/L (20-31); CHLORIDE LEVEL 105 MMOL/L (98-107); CREATININE FOR GFR 0.91 MG/DL (0.70-1.30); GLOMERULAR FILTRATION RATE > 60.0 (>60); GLUCOSE, FASTING 82 MG/DL (60-100); POTASSIUM SERUM 4.3 MMOL/L (3.5-5.1); SODIUM LEVEL 141 MMOL/L (136-145); TOTAL PROTEIN 5.9 G/DL (5.7-8.2)
[2023-08-12 03:58] LABS: THYROID STIMULATING HORMONE 5.548 uIU/ML (0.55-4.78)
[2023-08-12] MEDS ORDERED: DIVA500T94 PO (05:54)
[2023-08-12] MEDS ORDERED: HOME MED LIST COMPLETE! XX SCH (06:00)
[2023-08-12 06:32] LABS: BARBITURATES URINE NEGATIVE (NEGATIVE); BENZODIAZEPINES URINE NEGATIVE (NEGATIVE); COCAINE METABOLITE URINE NEGATIVE (NEGATIVE); METHADONE URINE NEGATIVE (NEGATIVE); OPIATES URINE NEGATIVE (NEGATIVE); PHENCYCLIDINE URINE NEGATIVE (NEGATIVE)
[2023-08-12 06:36] LABS: AMPHETAMINES LEVEL URINE POSITIVE (NEGATIVE); CANNABINOIDS URINE POSITIVE (NEGATIVE)
[2023-08-12] MEDS ORDERED: IBUPROFEN 400MG TAB PO PRN (18:15)
[2023-08-12] MEDS ORDERED: diphenhydrAMINE 25MG CAP PO PRN (18:15)
[2023-08-12] MEDS ORDERED: MOM 30ML SUSPENSION UDC PO PRN (18:15)
[2023-08-12 21:20] VITALS: BP 120/95; TEMP 98.1; O2SAT 97
[2023-08-13] MEDS: PERMETHRIN 5% CREAM 60 GM TOP ONE (17:03)
[2023-08-13] MEDS: DIVALPROEX 250MG *ER* TAB PO SCH (21:00)
[2023-08-14 06:46] LABS: CHOLESTEROL RISK RATIO 2.97 (<5); HDL CHOLESTEROL 42.3 MG/DL (>40); LDL CHOLESTEROL 64.1 MG/DL (<100); NON-HDL-C 83.7 MG/DL
[2023-08-17] MEDS: DIVALPROEX 250MG *ER* TAB PO SCH (09:46)
[2023-08-17] MEDS: CARIPRAZINE 3MG CAPSULE (VRAYLAR) PO SCH (21:00)
[2023-08-18] MEDS: traZODone 50 MG TAB PO PRN (02:25)
[2023-08-18] MEDS: QUEtiapine FUMARATE 100 MG TAB PO SCH (10:56)
[2023-08-18 18:36] VITALS: BP 112/68; TEMP 97.8
[2023-08-18] MEDS: QUEtiapine FUMARATE 200 MG TAB PO SCH (20:05)
[2023-08-19] MEDS: NICOTINE POLACRILEX 2 MG GUM PO PRN (08:40)
[2023-08-21] MEDS: buPROPion **XL** TABLET 150MG (WELLBUTRIN XL) PO SCH (09:27)
[2023-08-21 16:16] VITALS: BP 128/81; TEMP 98.2; O2SAT 100
[2023-08-22 06:18] VITALS: BP 134/61; TEMP 97.6; O2SAT 97
[2023-08-22 16:09] VITALS: BP 118/82; TEMP 97.8; O2SAT 99
[2023-08-24] MEDS: ACETAMINOPHEN TAB 650MG DOSE (2X325MG) PO PRN (06:46)
[2023-08-24 06:49] VITALS: BP 136/76; TEMP 97.3; O2SAT 100
[2023-08-24] MEDS: DIVALPROEX 250MG *ER* TAB PO SCH (09:45)
[2023-08-24 17:57] VITALS: BP 88/50; TEMP 97.2
[2023-08-24] MEDS: MAALOX 30 ML SUSP *UDC PO PRN (21:14)
[2023-08-25] MEDS ORDERED: DIVA500T9 PO (10:28)
[2023-08-25] MEDS ORDERED: NICO2GUM PO (10:28)
[2023-08-25] MEDS ORDERED: BUPR150T12 PO (10:28)
[2023-08-25] MEDS ORDERED: QUET100T2 PO (10:28)
[2023-08-25] MEDS ORDERED: QUET200T2 PO (10:28)
[2023-08-25] MEDS ORDERED: TRAZ-252 PO (10:28)
== END 2023-08-25 12:08 | disposition home or self-care (01) | DRG 885 ==
LOC: M ED 02:16 → M ED INP 18:15 → M PSY 21:08
PROVIDERS: ADMIT Student in an Organized Health Care Education/Training Program; ATTEND Student in an Organized Health Care Education/Training Program
DX: F29 Unspecified psychosis not due to a substance or known physiological condition (principal); F15.150 Other stimulant abuse with stimulant-induced psychotic disorder with delusions; F12.150 Cannabis abuse with psychotic disorder with delusions; Z59.00 Homelessness unspecified; Z56.0 Unemployment, unspecified; Z79.899 Other long term (current) drug therapy; Z91.51 Personal history of suicidal behavior; R21 Rash and other nonspecific skin eruption

== ENCOUNTER → 2024-04-11 | Outpatient (REF) | payer MEDICARE, MEDICAID ==
[~2024-04-11] MED LIST changes: +CLAR10CA3 PO; -CYCL5TAB PO; +CYCL5TAB4 PO; +DIVA500T9 PO; +NICO2GUM PO
[2024-04-11 22:21] LABS: APPEARANCE, URINE CLEAR (CLEAR); BACTERIA, URINE AUTO NEGATIVE (NEGATIVE); BILIRUBIN, URINE AUTO NEGATIVE (NEGATIVE); BLOOD, URINE BLOOD NEGATIVE (NEGATIVE); COLOR, URINE YELLOW (YELLOW); GLUCOSE, URINE (UA) AUTO NEGATIVE (NEGATIVE); KETONE, URINE AUTO NEGATIVE (NEGATIVE); LEUKOCYTE ESTERASE, URINE AUTO NEGATIVE (NEGATIVE); MUCUS, URINE SMALL (NEGATIVE); NITRITE, URINE AUTO NEGATIVE (NEGATIVE); PROTEIN, URINE AUTO NEGATIVE (NEGATIVE); RBC, URINE AUTO 1 /HPF (0-3); SQUAMOUS EPITHELIAL CELL UR AU 0 /HPF (0-6); UROBILINOGEN, URINE AUTO 0.2 mg/dL (0.0-2.0); WBC, URINE AUTO 0 /HPF (0-3)
[2024-04-12 13:27] LABS: Trichomonas vaginalis (AMP) NOT DETECTED (NEGATIVE)
[2024-04-12 13:51] LABS: GC DNA AMPLIFICATION NEGATIVE (NEGATIVE)
== END ==
LOC: M LAB REF 21:46
PROVIDERS: ATTEND Physician Assistant Medical
DX: N39.0 Urinary tract infection, site not specified (principal); Z11.3 Encounter for screening for infections with a predominantly sexual mode of transmission

== ENCOUNTER → 2024-07-07 | Outpatient (CLI) | payer MEDICARE, MEDICAID | LOC: M LAB 16:57 | PROVIDERS: ATTEND Nurse Practitioner Family | DX: Z79.899 Other long term (current) drug therapy (principal) ==

== ENCOUNTER → 2024-12-23 | Outpatient (CLI) | payer MEDICARE, MEDICAID ==
[~2024-12-23] MED LIST changes: +DEPA250T PO; -DEPA250T2 PO; +DIVA-41 PO; -DIVA500T94 PO; +LAMO-18 PO; -LAMO25TA4 PO; -VERA120C3 PO; +VERA120C9 PO
[2024-12-23 10:21] LABS: VALPROIC ACID (DEPAKOTE) 35.3 UG/ML (50.0-100.0)
[2024-12-23 10:23] LABS: ALT/SGPT 16 U/L (7.0-40); AST/SGOT 19 U/L (<34); CALCIUM LEVEL 9.2 MG/DL (8.5-10.1); CARBON DIOXIDE LEVEL 29 MMOL/L (20-31); CHLORIDE LEVEL 103 MMOL/L (98-107); CREATININE FOR GFR 0.85 MG/DL (0.70-1.30); GLOMERULAR FILTRATION RATE > 90.0 (>60); POTASSIUM SERUM 3.9 MMOL/L (3.5-5.1); SODIUM LEVEL 138 MMOL/L (136-145)
[2024-12-23 10:24] LABS: TOTAL 25(OH) VITAMIN D 41.6 NG/ML (20.0-100.0); VITAMIN B12 LEVEL 926 PG/ML (211-911)
[2024-12-23 10:25] LABS: FREE T4 1.35 NG/DL (0.89-1.76)
== END ==
LOC: M LAB 08:19
PROVIDERS: ATTEND Nurse Practitioner Family
DX: F11.90 Opioid use, unspecified, uncomplicated (principal); Z79.899 Other long term (current) drug therapy